=== PATIENT | male | born 1990 | race African-American/Black ===

== ENCOUNTER 2019-04-09 23:31 | Observation (INO) ==
[2019-04-10] MEDS ORDERED: LORazepam 2 MG/1 ML VIAL IV STA (00:20)
[2019-04-10] MEDS ORDERED: VALPROIC ACID INJ 500 MG in SODIUM CHLORIDE 0.9% 100 ML IV STA ×2 (00:21→00:23)
[2019-04-10 00:28] LABS: Basophils # 0.1 10*3/uL (0.0-0.2); Basophils % 0.7 % (0.0-0.8); Eosinophils # 0.5 10*3/uL (0.0-0.87); Eosinophils % 6.5 % (0.00-10.9); Hematocrit 42.3 VOL% (42.0-52.0); Immature Granulocytes % 0.4 %; Immature Granulocytes Absolute 0.03 #; Lymphocytes # 3.3 10*3/uL (1.4-4.0); Lymphocytes % 39.1 % (21.2-54.2); Mean Corpuscular HGB Conc 33.1 GM/DL (32-36); Mean Corpuscular Volume 102.4 FL (87-102); Mean Platelet Volume 11.8 FL (9.6-12.0); Monocytes % 13.3 % (1.7-12.7); Platelet Count 155 T/CUMM (130-400); Red Blood Count 4.13 MC/CUMM (3.8-5.5); Red Cell Distribution Width 11.9 % (9.3-17.3); White Blood Count 8.4 T/CUMM (4-12)
[2019-04-10 00:40] LABS: Alanine Aminotransferase 32 U/L (16-61); Albumin 3.5 G/DL (3.4-5.0); Alkaline Phosphatase 70 U/L (45-117); Aspartate Amino Transferase 35 U/L (0-37); Bilirubin,Total < 0.39 MG/DL (0.2-1.0); Blood Urea Nitrogen 7 MG/DL (7-18); Calcium 9.2 MG/DL (8.5-10.1); Glucose 120 MG/DL (74-106); Osmolality,Calculated 273.7 MOS/KG (273-304); Total Protein 7.6 G/DL (6.4-8.3)
[2019-04-10 01:02] LABS: Apearance,Urine CLEAR (Clear); Bacteria,Urine Occasional /HPF (Few); Bilirubin,Urine Negative (Negative); Blood, Urine Negative (Negative); Glucose,Urine (UA) Negative (Negative); Ketones,Urine Negative (Negative); Nitrite,Urine Negative (Negative); Protein,Urine 30 MG/DL; RBC,Urine <1 /HPF (0-4); Urine Color Straw (Yellow); Urine Specific Gravity 1.006 (1.001-1.035); Urine Urobilinogen < 2.0 EU/DL (0.2-1.0); WBC,Urine <1 /HPF (0-6)
[2019-04-10 02:02] LABS: Barbiturates Screen,Urine Negative (Negative); Benzodiazepines Screen,Urine Negative (Negative); Cannabinoid Screen,Urine Negative (Negative); Opiate Screen,Urine Negative (Negative); Phencyclidine Screen,Urine Negative (Negative)
[2019-04-10] MEDS ORDERED: LORazepam 2 MG/1 ML VIAL IV PRN (06:32)
[2019-04-10] MEDS ORDERED: levETIRAcetam 500 MG TABLET PO SCH (09:00)
[2019-04-10] MEDS ORDERED: FOLIC ACID 1 MG TABLET PO SCH (09:00)
[2019-04-10] MEDS: DIVALPROEX 500 MG TABLET PO SCH ×2 (09:39→15:26)
[2019-04-10 11:59] VITALS: BP 115/56
== END 2019-04-10 15:56 ==
LOC: EDUNIT# → EDBD → N.EDINP 23:31 → N.ED 23:31 → SUATTDRO 04-10 02:59 → N.4E 04-10 03:16
PROVIDERS: ADMIT Family Medicine; ATTEND Family Medicine